=== PATIENT | male | born 1980 | race African-American/Black ===

== ENCOUNTER 2018-04-29 20:07 | Emergency (ER) | payer OTHER ==
[~2018-04-29] VITALS: Ht 157.5 cm; Wt 83.9 kg
[2018-04-29 20:45] VITALS: BP 103/66; TEMP 98.1
== END 2018-04-29 21:00 | disposition short-term general hospital (02) ==
LOC: ED 20:07
PROC: 0T9B70Z Drainage of Bladder with Drainage Device, Via Natural or Artificial Opening (ICD-10-PCS; principal; 2018-04-29)
DX: S51.811A Laceration without foreign body of right forearm, initial encounter (principal); X99.8XXA Assault by other sharp object, initial encounter
CPT/HCPCS: 90471; 90715; 96360; 96365; 96376; 99285; J0696; J1885; J7120

== ENCOUNTER → 2018-04-29 | Outpatient (CLI) | payer OTHER | END | disposition short-term general hospital (02) | LOC: AMB 19:34 | DX: S51.811A Laceration without foreign body of right forearm, initial encounter (principal); S01.81XA Laceration without foreign body of other part of head, initial encounter; X99.1XXA Assault by knife, initial encounter; Y92.098 Other place in other non-institutional residence as the place of occurrence of the external cause | CPT/HCPCS: A0425; A0427 ==